=== PATIENT | female | born 1940 | race Caucasian/White ===

== ENCOUNTER 2021-10-31 10:18 | Outpatient (CLI) | payer OTHER ==
[~2021-10-31 10:18] MED LIST: NORVASC5 MG; SYNTHROID75 MCG; ZOCOR20 MG
== END 2021-10-31 10:28 | disposition home or self-care (01) ==
LOC: RAD 10:18
PROVIDERS: ATTEND Otolaryngology
DX: R05.8 Other specified cough (principal); J38.01 Paralysis of vocal cords and larynx, unilateral; J38.3 Other diseases of vocal cords